=== PATIENT | female | born 1945 | race Caucasian/White ===

== ENCOUNTER 2016-10-31 13:26 | Inpatient (IN) | payer MEDICARE, OTHER ==
[~2016-10-31] VITALS: Ht 172.7 cm; Wt 84.9 kg
--- NOTE | ~2016-10-31 | HP ---
PATIENT'S NAME: [facility] AGE: 71 Y [address] ROOM: [place] [address] [place] [facility] [place]: 10[place]31/2016 History & Physical DISCHARGE DATE: FAMILY PHYSICIAN: Val Lisa MD ATTENDING PHYSICIAN: Ana Lilia Ceballos DATE OF SERVICE: CHIEF COMPLAINT: Abdominal pain and fever. HISTORY OF PRESENT ILLNESS: The patient is a 71-year-old female, who presents with a complaint of fever. The fever has been occurring for 2 days, which has been associated with decreased appetite, fatigue, headaches off and on, and difficulty breathing, specifically right rib pain. She denies any injury or trauma to that area. The patient had a temperature of up to 101 degrees at home, in the office, 100.8 was noted. The temperature was also taken orally. The patient states that she has had stomach pain off and on, pressure in her ears, and body aches. She reports abdominal pain is diffuse, achy, and intermittent. No change in bowel pattern or caliber. No dysuria. She has not felt nauseated, but has tried to self-induce vomiting in hopes of feeling better. Body ache is primarily in right lower rib and right shoulder, worse with movement especially with lying down or getting up. She has tried taking aspirin 325 mg about 3 times yesterday, but did not have any relief. She reports that she still has her gallbladder, but not appendix. Difficulty breathing is secondary to pain in the lower right rib area with each breath. PAST MEDICAL HISTORY: 1. Anxiety. 2. Classic migraines. ALLERGIES: NO KNOWN DRUG ALLERGIES. MEDICATIONS: [id number] vitamins and supplements, but no prescribed medications. FAMILY HISTORY: Positive coronary artery disease. SOCIAL HISTORY: Never smoked. No drug use. Occasional alcohol use. PATIENT'S NAME: [facility] AGE: 71 Y [address] ROOM: [place] [address] [place]: [facility] [place]: 10/31/2016 History & Physical DISCHARGE DATE: FAMILY PHYSICIAN: Val Lisa MD ATTENDING PHYSICIAN: Ana Lilia Ceballos PAST SURGICAL HISTORY: Oophorectomy, bilateral hysterectomy, appendectomy. REVIEW OF SYSTEMS: GENERAL: Positive for anorexia, chills, fatigue, and fever. Negative for changes in weight. SKIN: Negative for rash. HEENT: Negative for blurred vision, ear pain, eye pain, nasal congestion, sore throat, or visual disturbances. NECK: Negative for neck pain or stiffness. RESPIRATORY: Positive for dyspnea. Negative for cough. CARDIOVASCULAR: Negative for chest pain and edema. GI: Positive for abdominal pain. Negative for change in bowel habits, jaundice, nausea, or vomiting. FEMALE GENITOURINARY: Negative for dysuria. MUSCULOSKELETAL: Positive for right shoulder pain. Negative for arm weakness. PHYSICAL EXAMINATION: VITAL SIGNS: Blood pressure 105/50, pulse of 102, pulse ox 97% on room air, temperature 100.8, respirations 16. GENERAL: Alert, well-nourished, well-developed. Vital signs reviewed and recorded with mild acute distress and sickly appearance. SKIN: No rashes. HEENT: Normocephalic, atraumatic with no lesions or palpable masses. Mucous membranes dry. NECK: Full range of motion with no adenopathy. EYES: PERRLA and EOMI. EARS, NOSE, MOUTH, AND THROAT: Otoscopic film; no left tympanic membrane, normal posterior pharynx without erythema or exudates. PULMONARY: Auscultation, rales in the right lower lobe noted. Normal breath sounds. CARDIOVASCULAR: Normal heart sounds. Regular rhythm; however, mildly tachycardic at 100. No murmurs or gallops noted. EXTREMITIES: Normal pedal pulses bilaterally. ABDOMEN: Soft, normal bowel sounds. No distention. Mild tenderness in the right upper quadrant. BACK: Positive for CVA tenderness; however, this correlates with the rib tenderness that she has been feeling for the past couple of days. ASSESSMENT AND PLAN: A 71-year-old female, who was admitted to observation under sepsis criteria. 1. SIRS: We will get blood cultures prior to starting antibiotics. As no source of infection is obvious, we will be get abdomen, pelvis, and chest CT without contrast as well as labs including blood cultures, lactate plus calcitonin. We will begin antibiotics after blood cultures are drawn. PATIENT'S NAME: [facility] AGE: 71 Y [address] ROOM: [place] [address] [place] [facility] [place]: 10/31/2016 History & Physical DISCHARGE DATE: FAMILY PHYSICIAN: Val Lisa MD ATTENDING PHYSICIAN: Ana Lilia Ceballos ANA LILIA CEBALLOS MD RESIDENT FOR ROD ROSAS MD MR/modl /[id number] D: [id number] T: [id number] HISTORY & PHYSICAL
--- NOTE | ~2016-10-31 | DS ---
PATIENT'S NAME: [facility] AGE: 71 Y [address] ROOM: [id number] [place], [place] [address] [place] [facility] [place]: 10/31/2016 Discharge Summary DISCHARGE DATE: 11/03/2016 FAMILY PHYSICIAN: Val Lisa MD ATTENDING PHYSICIAN: Ana Lilia Ceballos ADMISSION DIAGNOSIS: Systemic inflammatory response syndrome. DISCHARGE DIAGNOSIS: Left lower lobe pneumonia. HOSPITAL COURSE: The patient was admitted on 10/31/2016 secondary to fever, elevated white count, and right upper quadrant pain without known source of infection. The patient met SIRS criteria. She had blood cultures drawn, which were found to be negative. She had urine cultures done, found to be negative. CT of abdomen showed infiltrates in the left lower lobe with a small left pleural effusion in the diaphragmatic angle, small hydronephrosis of L kidney, but remaining structures normal. Diagnosis at that point was left lower lobe pneumonia. The patient was started on IV antibiotics (Ceftriaxone 2g/day) after blood cultures were drawn. She was transitioned to oral levofloxacin today, 11/03/2016. White cell count was elevated on admission, but returned to within normal range. Fever at admission, but vitals remained stable throughout the stay and the patient has been a fever for the last 24 to 48 hours. The patient is feeling much better, and feels ready to go home. She states that she has a mild cough that is now started, but is not concerning for her. She never required oxygen during her stay. She does have some issues with constipation chronically, but this has been compounded by narcotic use while in the hospital. She was started on stool softeners. MEDICATIONS: Home medications continued. New medicatiosn: levofloxacin 750 mg tablets for 4 days; docusate sodium for constipation, Boyden 5/325, #15 1 to 2 q.4 hours as needed for pain. DISPOSITION: Home. FOLLOWUP: Follow up with Dr. Ceballos on 11/07/2016. ANA LILIA CEBALLOS MD RESIDENT FOR MD ALEX MCCARTY/modl /[id number] d: 11/04/16 0029 t: 11/08/16 1433, DISCHARGE SUMMARY
--- NOTE | 2016-10-31 17:14 | NUR ---
Pt is 71 yo female admitted for abdominal pain and fever this afternoon. patient states she has not been feeling well for a few days. has RUQ pain with pain in right shoulder. Patient is very anxious about being admitted. she helps care for her son's children as he has colitis and is not very well either. patient has multiple c/o. appears very needy at this time. she is anxious about a hospital bill. would be willing to have a pneumonia shot if it doesn't cost her too much. is concerned about being observation bed and medicare not wanting to pay for observation status. patient did have US of abdomen prior to admission. IV is started in left forearm with 20 ga without diff. pt ron well. education is given as documented. patient denies questions. refuses pneumatics at this time. call light is within reach. patient denies needs at this time. Report is given to AURORA Kuhn.
[2016-10-31] MEDS ORDERED: THERAGRAN-M1 TAB PO (17:53)
[2016-10-31] MEDS ORDERED: OMEGA-31000 MG PO (17:54)
[2016-10-31] MEDS ORDERED: VITAMIN D-40400 UNIT PO (17:55)
[2016-10-31] MEDS ORDERED: ASPIRIN325 MG PO (17:55)
--- NOTE | 2016-10-31 18:30 | NUR ---
Significant Event: Patient up to floor at 1615. Complaint of abdominal pain and fever and nausea. Up with 1 assist to the bathroom. IV fluid bolus currently infusing then after this bag is done patient goes to normal saline IV at 125 ml/hour. Dilaudid given at 1800--results pending. Patient to have CT scan yet tonight--see new orders. Follow up: Continue to monitor.
[2016-10-31 22:15] LABS: BASOPHIL % 0.1 %; HEMATOCRIT 34.9 % (33.0-46.0); HEMOGLOBIN 11.5 g/dL (10.0-15.0); IMMATURE GRANULOCYTE % 0.3 %; LYMPHOCYTE # 1.4 K/uL (0.8-4.0); LYMPHOCYTE % 12.8 %; MCH 28.9 pg (27.0-34.0); MCV 87.7 fl (83.0-98.0); MONOCYTE # 1.1 K/uL (0.0-1.0); MONOCYTE % 10.1 %; MPV 10.3 fl (9.4-12.4); NEUTROPHIL # (ANC) 8.6 K/uL (1.8-7.8); NEUTROPHIL % 76.7 %; NRBC % 0 /100WBC (0-0.00); PLATELET COUNT 272 K/uL (150-450); RBC 3.98 M/uL (3.50-5.50); RDW-CV 13.4 % (11.9-14.6); WBC 11.3 K/uL (4.0-11.0)
[2016-10-31 22:22] LABS: INR - (THERAPEUTIC) 0.98 (0.92-1.07); PROTIME 10.3 SECONDS (9.8-11.4); PTT 26 SECONDS (25-32)
[2016-10-31 22:35] LABS: ALBUMIN 2.9 gm/dL (3.5-5.0); ALK PHOS 57 IU/L (33-138); ALT 17 IU/L (12-78); ANION GAP 13.9 (10.0-19.0); AST 12 IU/L (10-40); BLOOD UREA NITROGEN 20 mg/dL (6-24); CALCIUM 8.6 mg/dL (8.5-10.5); CHLORIDE 105 mMol/L (96-110); CO2 21 mMol/L (22-32); CREATININE 0.8 mg/dL (0.5-1.1); ESTIMATED GFR (MDRD EQUATION) > 60; POTASSIUM 3.9 mMol/L (3.7-5.1); SODIUM 136 mMol/L (135-145); TOTAL BILIRUBIN 0.6 mg/dL (0.0-1.5); TOTAL PROTEIN 7.6 g/dL (6.0-8.4)
[2016-10-31 22:41] LABS: BICARBONATE 24.1 mmol/L (18.0-23.0); PCO2 38 mmHg (35-45); PO2 68 mmHg (80-90)
[2016-10-31 22:47] LABS: PCO2 44 mmHg (35-45); PO2 79 mmHg (80-90)
--- NOTE | 2016-11-01 03:39 | NUR ---
Pt. alert and oriented. VSS. RA. Started Sepsis protocol this shift. UA received. Still waiting for stool sample to send down. No calhoun needed. CT of abdomen last evening but results pending. DNR - bracelet placed. 1 assist. IV in L) forearm with fluids. Intermittant IV antibx. NPO - waiting for CT results. Slept well throughout shift. Gave tylenol about 0330 for headache. Pt. not voiding much. Cooperative with cares.
[2016-11-01 05:52] LABS: BASOPHIL % 0.1 %; EOSINOPHIL % 0.1 %; HEMATOCRIT 34.6 % (33.0-46.0); HEMOGLOBIN 11.6 g/dL (10.0-15.0); IMMATURE GRANULOCYTE % 0.2 %; LYMPHOCYTE # 1.2 K/uL (0.8-4.0); MCH 28.9 pg (27.0-34.0); MCHC 33.5 gm/dL (32.0-36.5); MCV 86.3 fl (83.0-98.0); MPV 9.1 fl (9.4-12.4); NEUTROPHIL # (ANC) 7.6 K/uL (1.8-7.8); NEUTROPHIL % 77.6 %; NRBC % 0 /100WBC (0-0.00); PLATELET COUNT 234 K/uL (150-450); RBC 4.01 M/uL (3.50-5.50); RDW-CV 13.2 % (11.9-14.6); WBC 9.8 K/uL (4.0-11.0)
[2016-11-01 06:10] LABS: ALBUMIN 2.6 gm/dL (3.5-5.0); ALK PHOS 55 IU/L (33-138); ALT 12 IU/L (12-78); ANION GAP 12.9 (10.0-19.0); AST 10 IU/L (10-40); BLOOD UREA NITROGEN 18 mg/dL (6-24); CALCIUM 8.1 mg/dL (8.5-10.5); CHLORIDE 106 mMol/L (96-110); CO2 23 mMol/L (22-32); CREATININE 0.7 mg/dL (0.5-1.1); ESTIMATED GFR (MDRD EQUATION) > 60; POTASSIUM 3.9 mMol/L (3.7-5.1); SODIUM 138 mMol/L (135-145); TOTAL BILIRUBIN 0.6 mg/dL (0.0-1.5)
[2016-11-01 09:26] LABS: BICARBONATE 22.8 mmol/L (18.0-23.0); LACTATE 1.1 mEq/L (0.50-1.60); PCO2 32 mmHg (35-45); PO2 64 mmHg (80-90)
--- NOTE | 2016-11-01 16:40 | NUR ---
Significant Event: Pt gets up to the bathroom with 1 minimal assist. She c/o right flank/upper abdomen pain. Pt now has a non-productive cough. She is doing IS independently every hour and is getting nebulized tx. She had a norco at 1105, with relief noted. Pt had 800ml in po, 800ml of UOP and 1226ml of IV fluids, no BM. Pt had rales in the LLL, dim RLL and clear dim the rest. Pt cries at times and states that she feels like she is never going to get better.
--- NOTE | 2016-11-01 17:30 | NUR ---
SPOKE TO PATIENT REGARDING CM AND OUR ROLE. PATIENT TELLS ME THAT SHE DOES NOT FEEL WELL TODAY AND SHE SPEAKS IN SLOW SOFT VOICE WHEN SHE IS TALKING TO ME. SHE TELLS ME SHE THINKS SHE IS TOO WEAK TO GO HOME AND SHE DOES NOT THINK THAT SHE CAN MANAGE ALONE. I ASKED HER IF SHE FEELS THAT SHE NEEDS TO GO TO A SNF AND SHE TELLS ME NO AND THAT IS NOT SURE WHAT SHE WILL NEED. ALSO PRESENTED TO HER OPTION OF HHC. SHE SAYS " I DON'T KNOW I KNOW THAT I AM SO WEAK." IN A SLOW SOFT VOICE IF IT IS EFFORT FOR HER TO SPEAK. CM WILL CONT TO FOLLOW NEEDED.
--- NOTE | 2016-11-02 04:13 | NUR ---
Pt. alert and oriented. VSS. RA. IV to L) Forearm with fluids. Intermittant IV antibx. Still need stool sample for sepsis protocol. SBA. Regular diet - not much of an appetite. Gave norco x1 at HS - relief noted. Productive cough. Crackles/rales heard upon auscultation. Pain in RUQ/flank area. Coopeartive with cares.
[2016-11-02 05:31] LABS: BASOPHIL % 0.2 %; EOSINOPHIL % 0.2 %; IMMATURE GRANULOCYTE % 0.3 %; LYMPHOCYTE # 1.1 K/uL (0.8-4.0); LYMPHOCYTE % 11.7 %; MCH 28.8 pg (27.0-34.0); MCHC 33.3 gm/dL (32.0-36.5); MCV 86.5 fl (83.0-98.0); MONOCYTE # 0.8 K/uL (0.0-1.0); MONOCYTE % 8.4 %; MPV 9.4 fl (9.4-12.4); NEUTROPHIL # (ANC) 7.5 K/uL (1.8-7.8); NEUTROPHIL % 79.2 %; NRBC % 0 /100WBC (0-0.00); RBC 4.16 M/uL (3.50-5.50); RDW-CV 13.2 % (11.9-14.6); WBC 9.4 K/uL (4.0-11.0)
[2016-11-02 05:34] LABS: PLATELET COUNT 282 K/uL (150-450)
[2016-11-02 05:47] LABS: ALBUMIN 2.4 gm/dL (3.5-5.0); ALK PHOS 58 IU/L (33-138); ALT 18 IU/L (12-78); ANION GAP 8.9 (10.0-19.0); AST 16 IU/L (10-40); BLOOD UREA NITROGEN 11 mg/dL (6-24); CALCIUM 8.3 mg/dL (8.5-10.5); CHLORIDE 107 mMol/L (96-110); CO2 26 mMol/L (22-32); CREATININE 0.7 mg/dL (0.5-1.1); ESTIMATED GFR (MDRD EQUATION) > 60; POTASSIUM 3.9 mMol/L (3.7-5.1); SODIUM 138 mMol/L (135-145); TOTAL PROTEIN 7.2 g/dL (6.0-8.4)
[2016-11-02 05:53] LABS: TOTAL BILIRUBIN 0.4 mg/dL (0.0-1.5)
--- NOTE | 2016-11-02 08:30 | NUR ---
D: PATIENT REFUSED PNEUMATICS I: REVIEWED THE IMPORTANCE OF SCD'S IN CLOT PREVENTION WITH DECREASED ACTIVITY R: ENCOURAGED PATIENT TO WEAR SCD'S P: PATIENT CONTINUED TO REFUSE
--- NOTE | 2016-11-02 14:39 | NUR ---
D: PATIENT VITAL SIGN STABLE PATIENT AFEBRILE. PATIENT DOES CONTNUE TO HAVE SOME SHORTNESS OF BREATH WITH ACTIVITY. WAS UP IN GARCIA X 2 TOLERATING WELL. PATIENT DID HAVE SHOWER TODAY AND "FEELS MUCH BETTER". IV INFUSING WITHOUT DIFFICULTY.
[2016-11-03 04:32] LABS: BASOPHIL % 0.3 %; EOSINOPHIL # 0.1 K/uL (0.0-0.5); EOSINOPHIL % 0.9 %; HEMATOCRIT 30.7 % (33.0-46.0); HEMOGLOBIN 10.3 g/dL (10.0-15.0); IMMATURE GRANULOCYTE % 0.3 %; LYMPHOCYTE # 1.5 K/uL (0.8-4.0); LYMPHOCYTE % 22.2 %; MCHC 33.6 gm/dL (32.0-36.5); MCV 86.5 fl (83.0-98.0); MONOCYTE # 0.6 K/uL (0.0-1.0); MONOCYTE % 9.1 %; MPV 9.3 fl (9.4-12.4); NEUTROPHIL # (ANC) 4.5 K/uL (1.8-7.8); NEUTROPHIL % 67.2 %; NRBC % 0 /100WBC (0-0.00); PLATELET COUNT 271 K/uL (150-450); RBC 3.55 M/uL (3.50-5.50); RDW-CV 13.2 % (11.9-14.6); WBC 6.7 K/uL (4.0-11.0)
[2016-11-03 04:52] LABS: ANION GAP 9.8 (10.0-19.0); CREATININE 0.6 mg/dL (0.5-1.1); POTASSIUM 3.8 mMol/L (3.7-5.1); TOTAL PROTEIN 6.2 g/dL (6.0-8.4)
[2016-11-03 04:53] LABS: TOTAL BILIRUBIN 0.3 mg/dL (0.0-1.5)
--- NOTE | 2016-11-03 05:10 | NUR ---
Significant Event: Patient alert and oriented X4. Up with stand by assist. Voids frequently. L) forearm IV a little red, but flushes well and has blood return. Pt hoping to go home today? On IV rocephin. Still need stool. PT started on stool softener. Emotional at times. Crackles in bases of lungs noted. Viola given around 0030 for pain from coughing. Refusing pneumatics. Follow up: monitor lung sounds
--- NOTE | 2016-11-03 12:27 | NUR ---
Talked with patient and daughter at bedside. Pt reports she is feeling better and will go home on discharge, not sure if going home today or not. Offered option of Home Health and she denies wanting Home Health to follow at home. Pt says her daughter will be here a couple of days and her sister and niece live in town if she needs anything. Will continue to follow.
--- NOTE | 2016-11-03 15:10 | NUR ---
D: PATIENT VITAL SIGNS STABLE PATIENT AFEBRILE PATIENT WAS SWITCHED TO ORAL ANTIBIOTICS THIS AM, IV DISCONTINUED DUE TO TENDERNESS OF LEFT ANTERIOR ARM. PATIENT HAS BEEN UP IN HALLS BUT IS OCCASSIONALLY SHORT OF BREATH WHEN AMBULATING TOO FAR. LUNG SOUNDS CLEAR WITH BILATERAL CRACKLES/RALES HEARD.
[2016-11-03] MEDS ORDERED: LEVAQUIN 750 M750 MG PO (19:23)
[2016-11-03] MEDS ORDERED: HYDROCODON-ACE1 EAC4 PO (19:36)
[2016-11-03] MEDS ORDERED: DIOCTO (= CO10 MG/ML PO (19:37)
== END 2016-11-03 19:53 | disposition disaster alternative care site (69) | DRG 195 ==
LOC: GRAD 13:26 → GMSU 15:08
PROVIDERS: Family Medicine; ADMIT Internal Medicine
DX: J18.9 Pneumonia, unspecified organism (principal); K59.09 Other constipation; Z79.82 Long term (current) use of aspirin
CPT/HCPCS: J0696; J1170; J1650; J2405; J7030; J7040

== ENCOUNTER → 2016-10-31 | Outpatient (CLI) | payer MEDICARE, OTHER ==
[~2016-10-31] MED LIST: ASPIRIN325 MG PO; DIOCTO (= CO10 MG/ML PO; HYDROCODON-ACE1 EAC4 PO; LEVAQUIN 750 M750 MG PO; OMEGA-31000 MG PO; THERAGRAN-M1 TAB PO; VITAMIN D-40400 UNIT PO
== END | disposition disaster alternative care site (69) ==
LOC: LFPA 15:44
DX: R50.9 Fever, unspecified (principal)